=== PATIENT | female | born 1975 | race Native Hawaiian/Other Pacific Islander ===

== ENCOUNTER → 2016-07-24 | Outpatient (CLI) | payer BC ==
--- NOTE | 2016-07-24 15:28 | DI ---
Indication: ITS.REASON: N92.0 PROCEDURE: US PELVIC NON OB W/TRANS VAG: Encounter: Initial Comparison: None FINDINGS: Transvaginal and transabdominal pelvic imaging was performed. The uterus measures 7.6 x 3.9 x 5.4 cm. The parenchyma is homogeneous without fibroids. The endometrial stripe measures 7 mm in thickness. There is no evidence of focal endometrial mass. Both ovaries are identified and normal in appearance. The right ovary measures 2.2 x 1.4 x 2.2 cm. The left ovary measures 2 x 1.2 x 1.2 cm. There are no abnormal adnexal masses detected. Small amount of free fluid. Doppler flow seen to both ovaries. IMPRESSION: Unremarkable pelvic sonogram. .
== END ==
LOC: IMA 13:29
PROVIDERS: ATTEND Obstetrics & Gynecology
DX: Z12.31 Encounter for screening mammogram for malignant neoplasm of breast (principal); Z98.82 Breast implant status; N92.0 Excessive and frequent menstruation with regular cycle
CPT/HCPCS: 76830; 76856; 77063; G0202